=== PATIENT | female | born 1985 | race Caucasian/White ===

== ENCOUNTER → 2018-01-04 | Outpatient (REF) | payer BC ==
[2018-01-04 13:04] LABS: BASO # 0.1 10^3/uL (0.0-0.2); BASO % 1.1 % (0.0-1.0); EOS # 0.5 10^3/uL (0.0-0.50); EOS % 5.3 % (0.0-3.0); HEMATOCRIT 43.6 % (36.0-47.0); HEMOGLOBIN 15.1 g/dl (12.0-15.5); IMMATURE GRANULOCYTE % 0.5 % (0-3.0); LYMPH # 2.4 10^3/uL (1.5-4.5); LYMPH % 27.7 % (24.0-44.0); MEAN CORPUSCULAR HGB CONC 34.6 g/dl (32.0-36.5); MEAN CORPUSCULAR VOLUME 95.4 fl (80.0-96.0); MONO # 0.7 10^3/uL (0.0-0.8); MONO % 7.6 % (0.0-5.0); NEUTROPHILS # 5.1 10^3/uL (1.8-7.7); NEUTROPHILS % 57.8 % (36.0-66.0); PLATELET COUNT, AUTOMATED 289 10^3/uL (150-450); RED BLOOD COUNT 4.57 10^6/uL (4.00-5.40); RED CELL DISTRIBUTION WIDTH 12.6 % (11.5-14.5); WHITE BLOOD COUNT 8.7 10^3/uL (4.0-10.0)
[2018-01-04 13:54] LABS: ALBUMIN 3.7 GM/DL (3.2-5.2); ALBUMIN/GLOBULIN RATIO 1.12 (1.00-1.93); ALKALINE PHOSPHATASE 71 U/L (45-117); ALT/SGPT 19 U/L (12-78); ANION GAP 8 MEQ/L (8-16); AST/SGOT 12 U/L (7-37); BILIRUBIN,TOTAL 0.5 MG/DL (0.2-1.0); BLOOD UREA NITROGEN 12 MG/DL (7-18); CALCIUM LEVEL 8.5 MG/DL (8.5-10.1); CARBON DIOXIDE LEVEL 25 MEQ/L (21-32); CHLORIDE LEVEL 107 MEQ/L (98-107); CHOLESTEROL LEVEL 154 MG/DL (<200); CHOLESTEROL RISK RATIO 2.406 (<5); CREATININE FOR GFR 0.72 MG/DL (0.55-1.30); GLOMERULAR FILTRATION RATE > 60.0 (>60); GLUCOSE, FASTING 91 MG/DL (70-100); HDL CHOLESTEROL 64 MG/DL (>40); LDL CHOLESTEROL 71 MG/DL (<100); NON-HDL-C 90 MG/DL; POTASSIUM SERUM 3.8 MEQ/L (3.5-5.1); SODIUM LEVEL 140 MEQ/L (136-145); TOTAL 25(OH) VITAMIN D 35.1 NG/ML (30.0-100.0); TRIGLYCERIDES LEVEL 93 MG/DL (<150)
[2018-01-04 17:55] LABS: ESTIMATED AVERAGE GLUCOSE 97 MG/DL (60-110)
== END ==
LOC: M LAB REF 12:16
DX: Z13.9 Encounter for screening, unspecified (principal)
CPT/HCPCS: 84443

== ENCOUNTER → 2018-03-09 | Outpatient (REF) | payer OTHER ==
[~2018-03-09] MED LIST: KLON0.5T OR; No Historical Meds; PAXI20TA OR
[2018-03-09 23:07] LABS: CHLAMYDIA DNA AMPLIFICATION NEGATIVE (NEGATIVE); GC DNA AMPLIFICATION NEGATIVE (NEGATIVE)
[2018-03-11 15:05] LABS: HPV HYBRID CAPTURE II Negative (Negative)
== END ==
LOC: M LAB REF 17:48
PROVIDERS: ATTEND Nurse Practitioner Family
DX: Z13.9 Encounter for screening, unspecified (principal)

== ENCOUNTER → 2020-09-07 | Outpatient (CLI) | payer OTHER ==
[~2020-09-07] MED LIST changes: +FLUTISP
== END ==
LOC: M RAD 08:22
PROVIDERS: ATTEND Otolaryngology
DX: J33.9 Nasal polyp, unspecified (principal)

== ENCOUNTER → 2020-11-01 | Outpatient (CLI) | payer OTHER | LOC: M LABSMTC 09:07 | PROVIDERS: ATTEND Anesthesiology | DX: Z01.818 Encounter for other preprocedural examination (principal); Z11.52 Encounter for screening for COVID-19 ==

== ENCOUNTER 2020-11-08 06:42 | Day surgery (SDC) | payer OTHER ==
[~2020-11-08] VITALS: Ht 152.4 cm; Wt 77.1 kg
[~2020-11-08 06:42] MED LIST changes: +LR 1,000 ML IV ONE; +dexameTHASONE 4 MG/ML 1ML VIAL (J1100 PER 1MG) IV ONE
[2020-11-08] MEDS ORDERED: fentaNYL 100 MCG/2 ML INJECTION (J3010) As Ordered ONE (06:57)
[2020-11-08] MEDS ORDERED: MIDAZOLAM INJ 2MG/2ML VIAL (J2250 PER 1MG) As Ordered ONE (06:57)
[2020-11-08] MEDS ORDERED: SUGAMMADEX SODIUM 500 MG/5 ML VIAL (BRIDION) As Ordered ONE (06:58)
[2020-11-08] MEDS ORDERED: ROCURONIUM BROMIDE 50 MG/5 ML VIAL As Ordered ONE (06:58)
[2020-11-08] MEDS ORDERED: propofoL 200 MG/20 ML VIAL As Ordered ONE (06:58)
[2020-11-08] MEDS ORDERED: ONDANSETRON 4MG/2ML VIAL As Ordered ONE ×2 (06:58→12:01)
[2020-11-08] MEDS ORDERED: LIDOCAINE 2% 100MG/5ML SDV (FOR ANES.) As Ordered ONE ×2 (06:58→10:16)
[2020-11-08] MEDS ORDERED: dexameTHASONE 4 MG/ML 1ML VIAL (J1100 PER 1MG) As Ordered ONE (06:58)
[2020-11-08] MEDS ORDERED: SODIUM CHLORIDE 0.9% NASAL GEL 15GM (AYR) As Ordered ONE (08:21)
[2020-11-08] MEDS ORDERED: METHYLENE BLUE 0.5% (5MG/ML) 10 ML AMP (PROVAYBLUE) As Ordered ONE (08:21)
[2020-11-08] MEDS ORDERED: EPINEPHrine 1MG/ML INJ 30ML MD-VIAL As Ordered ONE (08:21)
[2020-11-08] MEDS ORDERED: LIDOCAINE W/EPINEPHRINE 1% 20ML VIAL As Ordered ONE (08:21)
[2020-11-08] MEDS ORDERED: ePHEDrine SULFATE 25 MG/5 ML(5MG/ML) SYRINGE As Ordered ONE (09:13)
[2020-11-08] MEDS ORDERED: PHENYLephrine 500MCG 5ML (100MCG/ML) SYRINGE As Ordered ONE (09:13)
[2020-11-08] MEDS ORDERED: ACETAMINOPHEN 1000MG 100ML IV BTL (OFIRMEV) (J0131 PER 10MG) As Ordered ONE (09:21)
[2020-11-08] MEDS ORDERED: LR 1,000 ML IV SCH ×2 (12:10→12:15)
[2020-11-08] MEDS ORDERED: PERCOCET 5MG/325MG TAB PO PRN (12:15)
[2020-11-08] MEDS ORDERED: ONDANSETRON 4MG/2ML VIAL IV PRN (12:15)
[2020-11-08] MEDS ORDERED: METOCLOPRAMIDE INJ 10MG/2ML VIAL (J2765 PER 1) IV PRN (12:15)
[2020-11-08] MEDS ORDERED: fentaNYL 100 MCG/2 ML INJECTION (J3010) IV PRN (12:15)
[2020-11-08 14:00] VITALS: BP 139/78
--- NOTE | 2020-11-14 13:30 | RO ---
OPERATIVE NOTE DATE OF OPERATION: 11/08/2020 PREOPERATIVE DIAGNOSIS: Bilateral nasal polyposis, chronic maxillary sinusitis, chronic ethmoid sinusitis, and chronic frontal sinusitis. POSTOPERATIVE DIAGNOSIS: Bilateral nasal polyposis, chronic maxillary sinusitis, chronic ethmoid sinusitis, and chronic frontal sinusitis. PROCEDURES PERFORMED: 1. Stereotactic surgery using the BrainLAB. 2. Bilateral endoscopic maxillary antrostomy with soft tissue removal. 3. Bilateral endoscopic anterior and posterior ethmoidectomy. 4. Bilateral frontal sinusotomy using the balloon. 5. Bilateral implantation of the Propel stents. SURGEON: Sanchez Sylvester MD. FILM FLAT INSPECTOR: ANESTHESIA: General. CLINICAL PREAMBLE: This 35-year-old woman presented to the office with a history of chronic nasal congestion unresponsive to medical therapy including the nasal steroid sprays and immunotherapy. Physical examination revealed bilateral diffuse nasal polyposis. The physical findings confirmed on the CT of sinuses as well. Management options including surgical procedures listed above have been discussed with the patient in great detail. She understood and consented to the procedure. OR NARRATION: Patient was identified in preop holding and brought to the operating room in sterile condition. In the supine position on the operating table, patient received general anesthesia followed by orotracheal intubation without incident. Patient was prepped and draped in the usual fashion for the procedure. The head pin was successful attached to the forehead. Good surface matching was obtained between the patient's facial anatomy and the BrainLAB system. At this time, both eyes were lubricated and protected using a Tegaderm. Both sides of the nasal cavity were then packed using pledgets soaked in 1:100,000 epinephrine. Patient was then prepped and draped for the sinus surgery in the usual fashion. At this time, the pledgets were removed. Both sides of the nasal cavity were inspected using the 0 degree rigid nasal endoscope. Diffuse nasal polyposis was noted on both sides of the nasal cavity. Using the Vaunte microdebrider system, the nasal polyps were debrided away from both sides of the nasal cavity. At this time, the left and right middle nasal turbinates were identified and infiltrated with 1% lidocaine with 1:100,000 epinephrine. The right uncinate process with significant polypoid degeneration was also identified and carefully infiltrated with 1% lidocaine with 1:100,000 epinephrine as well. Using the ostium seeker, the right maxillary antrum was successfully identified. Using the side biting forceps, the right maxillary antrostomy was performed. Additional polypoid tissue around the antrum was also debrided. The uncinate was also debrided as well. The right maxillary sinus cavity was then visualized and irrigated with saline solution. The right ethmoidalis bulla was identified and resected using the grasping forceps. The diseased anterior ethmoid air cells with polypoid degeneration were also removed using the grasping forceps. Basal lamella was identified and carefully penetrated. The diseased posterior ethmoid air cells were then resected using the cutting forceps. At this time, the frontal recess was gently probed. An illuminated guidewire was then successfully introduced into the right frontal recess area into the right frontal sinus with positive transillumination. The Acclarent balloon was then advanced into the frontal recess into the frontal sinus, and the balloon was inflated to 12 atmospheric pressure for 5 seconds. At this time, the balloon was withdrawn. The right osteomeatal complex area was then packed using pledgets soaked in 1:100,000 epinephrine. Attention was then turned to the left side of the nasal cavity. The left uncinate process and the left middle nasal turbinates were identified and infiltrated with 1% lidocaine with 1:100,000 epinephrine. The right maxillary antrum was identified and then enlarged using the side biting forceps. Polypoid tissues around the right maxillary antrum were also resected as well. The left uncinate process was also similarly debrided and resected as well. The left ethmoidalis bulla along with the diseased anterior ethmoid air cells were resected with the grasping forceps. The basal lamella was penetrated, and diseased posterior ethmoid air cells were identified and resected using cutting forceps as well. The left frontal recess was similarly identified, and the illuminated guidewire was successfully introduced into the left frontal sinus as well. The balloon was advanced into the frontal recess and inflated to 12 atmospheric pressure for 5 seconds. Pledgets soaked in 1:100,000 epinephrine was then placed into the left osteomeatal complex to achieve hemostasis. Both pledgets were removed from the nasal cavity at this time. Good hemostasis was observed. The Propel stents were inserted into the left and the right osteomeatal complex to ensure good medialization of the right and left middle nasal turbinates. At the end of the procedure, sponge and instrument counts were correct. No complications encountered. Estimated blood loss was approximately 50 mL. General anesthesia was reversed, and the patient was extubated and brought to the recovery room in stable condition. In the recovery area, patient exhibits full and symmetrical extraocular motion with no evidence of periorbital ecchymosis.
== END 2020-11-08 14:05 | disposition home or self-care (01) ==
LOC: M SDC 06:42
PROVIDERS: ATTEND Otolaryngology
DX: J32.9 Chronic sinusitis, unspecified (principal); F17.218 Nicotine dependence, cigarettes, with other nicotine-induced disorders
CPT/HCPCS: 31255; 31267; 31296; 81025; 88305; C2625; J0131; J1100; J2250; J2370; J2405; J3010; Q9968; U0002

== ENCOUNTER → 2023-03-31 | Outpatient (CLI) | payer OTHER ==
[~2023-03-31] MED LIST changes: -LR 1,000 ML IV ONE; -dexameTHASONE 4 MG/ML 1ML VIAL (J1100 PER 1MG) IV ONE
== END ==
LOC: M RAD 10:16
PROVIDERS: ATTEND Physician Assistant Medical
DX: J33.9 Nasal polyp, unspecified (principal)

== ENCOUNTER 2023-08-11 08:32 | Day surgery (SDC) | payer OTHER, SELFPAY ==
[~2023-08-11] VITALS: Ht 152.4 cm; Wt 74.8 kg
[~2023-08-11 08:32] MED LIST changes: +ZYRT10TA12 PO
[2023-08-11] MEDS ORDERED: LR 1,000 ML IV SCH (09:15)
[2023-08-11] MEDS ORDERED: LACRILUBE (AKWA TEARS) OPHTH OINT 3.5GM As Ordered ONE (10:24)
[2023-08-11] MEDS: SODIUM CHLORIDE 0.9% NASAL GEL 15GM (AYR) As Ordered ONE (10:30)
[2023-08-11] MEDS ORDERED: LIDOCAINE 2% 100MG/5ML SDV (FOR ANES.) As Ordered ONE (11:08)
[2023-08-11] MEDS ORDERED: ROCURONIUM BROMIDE 50MG/5ML VIAL As Ordered ONE (11:08)
[2023-08-11] MEDS ORDERED: fentaNYL 100 MCG/2 ML INJECTION As Ordered ONE (11:08)
[2023-08-11] MEDS ORDERED: MIDAZOLAM INJ 2MG/2ML VIAL As Ordered ONE (11:08)
[2023-08-11] MEDS ORDERED: propofoL 200 MG/20 ML VIAL As Ordered ONE (11:08)
[2023-08-11] MEDS ORDERED: ONDANSETRON 4MG 2ML VIAL As Ordered ONE (11:08)
[2023-08-11] MEDS ORDERED: SUGAMMADEX SODIUM 500 MG/5 ML VIAL (BRIDION) As Ordered ONE (11:08)
[2023-08-11] MEDS ORDERED: ACETAMINOPHEN 1000MG 100ML IV BAG As Ordered ONE (11:09)
[2023-08-11] MEDS ORDERED: ePHEDrine SULFATE 25 MG/5 ML(5MG/ML) SYRINGE As Ordered ONE (11:09)
[2023-08-11] MEDS ORDERED: ALBUTEROL 6.7GM INHALER **FOR ANES. CART/OMNICELL ONLY As Ordered ONE (11:10)
[2023-08-11] MEDS ORDERED: HYDROmorphone HCL 2MG/ML 1ML VIAL As Ordered ONE (11:31)
[2023-08-11] MEDS: METHYLENE BLUE 0.5% (5MG/ML) 10 ML AMP (PROVAYBLUE) As Ordered ONE (11:35)
[2023-08-11] MEDS: EPINEPHrine 1MG/ML INJ 30ML MD-VIAL As Ordered ONE (11:35)
[2023-08-11] MEDS ORDERED: ESMOLOL INJ 100MG/10ML VIAL As Ordered ONE (12:31)
[2023-08-11] MEDS: LIDOCAINE W/EPINEPHRINE 1% 20ML VIAL As Ordered ONE (13:30)
[2023-08-11] MEDS ORDERED: ONDANSETRON 4MG 2ML VIAL IV PRN (14:00)
[2023-08-11] MEDS ORDERED: fentaNYL 100 MCG/2 ML INJECTION IV PRN (14:00)
[2023-08-11] MEDS ORDERED: oxyCODONE 5MG TAB PO PRN (14:00)
[2023-08-11 15:30] VITALS: BP 135/69; TEMP 97.9; O2SAT 96
== END 2023-08-11 15:42 | disposition home or self-care (01) ==
LOC: M SDC 08:32
PROVIDERS: ATTEND Otolaryngology
DX: J33.9 Nasal polyp, unspecified (principal); J32.0 Chronic maxillary sinusitis; J32.1 Chronic frontal sinusitis; J32.3 Chronic sphenoidal sinusitis; K21.9 Gastro-esophageal reflux disease without esophagitis; F17.218 Nicotine dependence, cigarettes, with other nicotine-induced disorders; Z79.899 Other long term (current) drug therapy
CPT/HCPCS: 31255; 31267; 31296; 81025; 88305; J0131; J0171; J1100; J1170; J1805; J2250; J2405; J3010; Q9968

== ENCOUNTER → 2024-07-19 | Outpatient (CLI) | payer OTHER | LOC: M WHC 13:09 | PROVIDERS: ATTEND Physician Assistant Medical | DX: N63.23 Unspecified lump in the left breast, lower outer quadrant (principal); N63.11 Unspecified lump in the right breast, upper outer quadrant; R92.333 Mammographic heterogeneous density, bilateral breasts; R92.0 Mammographic microcalcification found on diagnostic imaging of breast; R59.0 Localized enlarged lymph nodes; N63.14 Unspecified lump in the right breast, lower inner quadrant; Z80.3 Family history of malignant neoplasm of breast | CPT/HCPCS: 76641; 77066; G0279 ==

== ENCOUNTER 2024-12-18 10:45 | Emergency (ER) | payer OTHER ==
[~2024-12-18] VITALS: Ht 152.4 cm; Wt 73.8 kg
[2024-12-18 11:30] LABS: BASO # 0.1 10^3/uL (0.0-0.2); BASO % 0.7 % (0.0-1.0); EOS # 0.5 10^3/uL (0.0-0.5); EOS % 4.3 % (0.0-3.0); LYMPH # 2.1 10^3/uL (1.5-5.0); LYMPH % 18.0 % (24.0-44.0); MONO # 0.8 10^3/uL (0.0-0.8); MONO % 7.0 % (2.0-8.0); NEUTROPHILS # 8.0 10^3/uL (1.5-8.5); NEUTROPHILS % 69.7 % (36.0-66.0); PLATELET COUNT, AUTOMATED 283 10^3/uL (150-450)
[2024-12-18 12:01] LABS: HCG, SERUM QUALITATIVE NEGATIVE (NEGATIVE)
[2024-12-18 12:03] LABS: ALT/SGPT 19 U/L (7.0-40); AST/SGOT 13 U/L (<34); CALCIUM LEVEL 8.8 MG/DL (8.5-10.1); CARBON DIOXIDE LEVEL 23 MMOL/L (20-31); CHLORIDE LEVEL 108 MMOL/L (98-107); CREATININE FOR GFR 0.73 MG/DL (0.55-1.30); GLOMERULAR FILTRATION RATE > 90.0 (>58); POTASSIUM SERUM 4.1 MMOL/L (3.5-5.1); SODIUM LEVEL 141 MMOL/L (136-145)
[2024-12-18 12:12] LABS: KETONE, URINE AUTO RFX NEGATIVE (NEGATIVE); LEUKOCYTE ESTERASE UR AUTO RFX NEGATIVE (NEGATIVE); MUCUS, URINE RFX SMALL (NEGATIVE); NITRITE, URINE AUTO RFX NEGATIVE (NEGATIVE); RBC, URINE AUTO RFX 1 /HPF (0-3); SQUAM EPITHELIAL CELL UR AURFX 2 /HPF (0-6); WBC, URINE AUTO RFX 1 /HPF (0-3)
[2024-12-18] MEDS ORDERED: ISOVUE-370 76% 100 ML VIAL As Ordered ONE (14:45)
[2024-12-18 16:10] VITALS: O2SAT 98
[2024-12-18] MEDS ORDERED: SUCR1SS PO (18:22)
[2024-12-18 18:26] VITALS: BP 147/87; TEMP 92.5
[2024-12-18] MEDS: SUCRALFATE SUSP 1GM/10ML UD PO ONE (18:31)
== END 2024-12-18 18:40 | disposition home or self-care (01) ==
LOC: M ED 10:45
DX: R10.9 Unspecified abdominal pain (principal); R51.9 Headache, unspecified; F17.200 Nicotine dependence, unspecified, uncomplicated; K76.0 Fatty (change of) liver, not elsewhere classified; N83.11 Corpus luteum cyst of right ovary; R91.1 Solitary pulmonary nodule; Z79.899 Other long term (current) drug therapy
CPT/HCPCS: 36415; 74177; 80048; 80076; 81001; 83605; 83690; 84703; 85025; 99284; Q9967

== ENCOUNTER 2024-12-29 08:15 | Emergency (ER) | payer OTHER ==
[~2024-12-29] VITALS: Ht 152.4 cm; Wt 69.6 kg
[~2024-12-29 08:15] MED LIST changes: +SUCR1SS PO
[2024-12-29 08:17] VITALS: TEMP 98.1
[2024-12-29] MEDS ORDERED: HYDR-3713 (08:24)
[2024-12-29] MEDS ORDERED: OMEP-173 (08:24)
[2024-12-29] MEDS ORDERED: CIPR500T39 (08:24)
[2024-12-29] MEDS ORDERED: ONDA-282 (08:24)
[2024-12-29] MEDS ORDERED: METR-265 (08:24)
[2024-12-29 09:10] LABS: BASO # 0.1 10^3/uL (0.0-0.2); BASO % 0.5 % (0.0-1.0); EOS # 0.4 10^3/uL (0.0-0.5); EOS % 3.5 % (0.0-3.0); LYMPH # 2.4 10^3/uL (1.5-5.0); LYMPH % 20.5 % (24.0-44.0); MONO # 1.0 10^3/uL (0.0-0.8); MONO % 8.1 % (2.0-8.0); NEUTROPHILS # 7.9 10^3/uL (1.5-8.5); NEUTROPHILS % 67.1 % (36.0-66.0); PLATELET COUNT, AUTOMATED 430 10^3/uL (150-450)
[2024-12-29 09:49] LABS: ALT/SGPT 36 U/L (7.0-40); AST/SGOT 17 U/L (<34); CALCIUM LEVEL 9.8 MG/DL (8.5-10.1); CARBON DIOXIDE LEVEL 27 MMOL/L (20-31); CHLORIDE LEVEL 99 MMOL/L (98-107); CREATININE FOR GFR 0.71 MG/DL (0.55-1.30); GLOMERULAR FILTRATION RATE > 90.0 (>58); POTASSIUM SERUM 3.5 MMOL/L (3.5-5.1); SODIUM LEVEL 138 MMOL/L (136-145)
[2024-12-29 09:51] LABS: HCG, SERUM QUALITATIVE NEGATIVE (NEGATIVE)
[2024-12-29] MEDS ORDERED: ISOVUE-370 76% 100 ML VIAL As Ordered ONE (10:10)
[2024-12-29] MEDS: NS (Normal Saline) 0.9% 1,000 ML IV ONE (10:14)
[2024-12-29] MEDS: ONDANSETRON 4MG/2ML VIAL IV ONE (10:14)
[2024-12-29] MEDS: KETOROLAC 30 MG/ML 1 ML VIAL IV ONE (10:15)
[2024-12-29] MEDS: diphenhydrAMINE 50 MG/ML VIAL IV STA (12:01)
[2024-12-29] MEDS: IPRATROPIUM 0.5 MG/ALBUTEROL 2.5 MG INH SOL UD 3 ML NEB PRN (12:03)
[2024-12-29 13:13] LABS: CK-MB VALUE MASS < 1.0 NG/ML (<3.6)
[2024-12-29 13:14] LABS: CPK CREATINE PHOSPHOKINASE 58 U/L (34-145)
[2024-12-29] MEDS ORDERED: PROM50TA4 PO (15:56)
[2024-12-29] MEDS ORDERED: DICY-61 PO (15:56)
[2024-12-29] MEDS ORDERED: PROM25SU3 PR (15:56)
[2024-12-29] MEDS ORDERED: ALBU8.5H INH (15:58)
[2024-12-29 16:00] VITALS: BP 128/75; O2SAT 96
[2024-12-29] MEDS: PROMETHAZINE 25 MG TAB PO ONE (16:09)
== END 2024-12-29 16:10 | disposition home or self-care (01) ==
LOC: M ED 08:15
DX: R10.9 Unspecified abdominal pain (principal); R11.2 Nausea with vomiting, unspecified; R19.7 Diarrhea, unspecified; R06.2 Wheezing; I45.10 Unspecified right bundle-branch block; I51.7 Cardiomegaly; K21.9 Gastro-esophageal reflux disease without esophagitis; Z79.1 Long term (current) use of non-steroidal anti-inflammatories (NSAID); Z79.52 Long term (current) use of systemic steroids; Z79.899 Other long term (current) drug therapy
CPT/HCPCS: 36415; 71250; 74177; 80053; 82550; 82553; 83690; 84484; 84703; 85025; 87486; 87507; 87581; 87633; 87798; 93005; 96361; 96374; 96375; 99284; J1200; J1885; J2405; J2919; Q9967